=== PATIENT | female | born 1940 | race African-American/Black ===

== ENCOUNTER → 2017-07-04 | Outpatient (CLI) | payer OTHER ==
[~2017-07-04] MED LIST: ASPIRIN PO; CALAN PO; DYAZIDE 37.5/251 CAP PO; FISH OIL PO; SIMCOR PO
--- NOTE | ~2017-07-04 | MY29 ---
[facility] A Service of [facility] RADIOLOGY TEXT RESULTS PATIENT: OPAL RAMOS LOCATION: [facility] : 40 UNIT #: [id number] AGE: [address]: BETTINA FAUST SEX: F ORDER DR: [id number] [facility] [address] [place], [place] [address] [id number] O MR#: [id number] Acc #: [id number] NAME: OPAL RAMOS : 1940 SEX: F STUDY DATE/TIME: 07/04/2017 11:00 UNIT: [facility] ROOM: STUDY DESCRIPTION: MY DESTINY SCREENING W/ CAD BILAT Attending Physician: Bettina Faust M.D. Referring Physician: Bettina Faust M.D. Primary Care Physician: Bettina Faust M.D. MEDICAL IMAGING REPORT This report is preliminary unless electronic signature is present EXAM Bilateral digital screening mammogram with CAD INDICATION Breast cancer screening. 76-year-old asymptomatic female. No personal or family history of breast cancer. COMPARISON Outside mammograms performed at [facility], [address] [place] [id number] dated June 05, 2016 and June 03, 2015. FINDINGS The breasts are almost entirely fatty. No suspicious findings are present. IMPRESSION No mammographic evidence of malignancy. Annual screening mammography and clinical breast exam are recommended. A result letter will be sent to the patient. Patients over the age of 40 are entered into a reminder system with target due date for the next mammogram. BIRADS: 1 Negative Dictated by... Frandy Chavez M.D. THIS IS AN ELECTRONICALLY VERIFIED REPORT Frandy Chavez M.D. at 07/07/2017 9:02 PM TAMMI/ben [facility] A Service of [facility] RADIOLOGY TEXT RESULTS PATIENT: OPAL RAMOS LOCATION: [facility] : 40 UNIT #: [id number] AGE: [address]: BETTINA FAUST SEX: F ORDER DR: TD: 07/05/2017 13:33 JOB #: [id number] MEDICAL IMAGING REPORT Page 1 of 1 COPY
== END | disposition home or self-care (01) ==
LOC: CWCC 10:23
DX: Z12.31 Encounter for screening mammogram for malignant neoplasm of breast (principal)
CPT/HCPCS: G0202